=== PATIENT | female | born 1955 | race African-American/Black ===

== ENCOUNTER 2023-08-28 14:12 | Inpatient (IN) | payer OTHER ==
[2023-08-28 14:50] VITALS: BMI 24.0
[2023-08-28 15:28] LABS: BASO % 0.5 % (0-2.0); EOS % 0.2 % (0-4.5); HEMATOCRIT 28.8 % (32.4-45.2); HEMOGLOBIN 9.4 GM/dL (10.7-15.3); LYMPH % 5.4 % (8-40); MCH 27.6 pg (25.7-33.7); MCHC 32.8 g/dl (32.0-36.0); MEAN CELL VOLUME 84.1 fl (80-96); MEAN PLT VOLUME 8.8 fl (7.5-11.1); MONO % 6.7 % (3.8-10.2); NEUT % 87.2 % (42.8-82.8); PLATELET COUNT 720 10^3/uL (134-434); RBC 3.42 M/mm3 (3.60-5.2); RDW 14.1 % (11.6-15.6); WHITE BLOOD COUNT 28.7 K/mm3 (4.0-10.0)
[2023-08-28 16:03] LABS: ALBUMIN 2.6 g/dl (3.4-5.0); CALCIUM 9.6 mg/dL (8.5-10.1)
[2023-08-28 16:06] LABS: CREATININE 1.3 mg/dL (0.55-1.3); LACTIC ACID 2.3 mmol/L (0.4-2.0)
[2023-08-28 16:08] LABS: BILIRUBIN,TOTAL 0.3 mg/dL (0.2-1)
[2023-08-28 16:43] LABS: ANISOCYTOSIS 0; MACROCYTOSIS 0
[2023-08-28] MEDS ORDERED: SODIUM CHLORIDE 0.9% 500 ML INFUS.BAG IV ONE (17:00)
[2023-08-28] MEDS ORDERED: HALOPERIDOL LACTATE 5 MG/ML IM ONE ×2 (17:39→18:05)
[2023-08-28] MEDS ORDERED: PIPERACILLIN/TAZOB 4.5 GM 4.5 GM in DEXTROSE 5%-WATER 100 ML IVPB ONE (18:57)
[2023-08-28] MEDS ORDERED: VANCOMYCIN 1,000 MG in DEXTROSE 5%-WATER - 250 ML IVPB ONE (18:57)
[2023-08-28] MEDS ORDERED: CEFEPIME HCL 1 GM VIAL (RESTRICTED TO ID) IVPB ONE (19:07)
[2023-08-28 20:14] LABS: EPI CELLS 6 /uL (0-25.1); HYALINE CASTS 2 /uL (0-3.1); PH,URINE 5.5 (5.0-8.0); URINE APPEARANCE CLEAR; URINE BACTERIA 191 /uL (0-1359); URINE BILIRUBIN NEGATIVE (NEGATIVE); URINE COLOR YELLOW; URINE GLUCOSE (UA) NEGATIVE (NEGATIVE); URINE KETONE 1+ (NEGATIVE); URINE LEUK ESTERASE 2+ (NEGATIVE); URINE NITRITE NEGATIVE (NEGATIVE); URINE PROTEIN 1+ (NEGATIVE); URINE WBC 277 /uL (0-25.8)
[2023-08-28 20:16] LABS: URINE RBC 24.2 /uL (0-23.9)
[2023-08-28] MEDS ORDERED: CEFEPIME 1 GM/100 ML BAG IVPB ONE (20:16)
[2023-08-28] MEDS ORDERED: VANCOMYCIN 1 GRAM (PRE-DOCKED) 1,000 MG/250 ML BAG IVPB ONE (20:16)
[2023-08-28] MEDS: SODIUM CHLORIDE 0.45% 1,000 ML IV SCH (22:50)
[2023-08-28] MEDS ORDERED: clonazePAM 0.5 MG TABLET PO SCH (23:30)
[2023-08-28] MEDS ORDERED: clonazePAM 0.5 MG TABLET PO PRN (23:45)
[2023-08-29] MEDS: CEFEPIME HCL 2 GM VIAL (RESTRICTED TO ID) IVPB SCH ×2 (03:50→16:30)
[2023-08-29] MEDS: INSULIN SLIDING SCALE (NOVOLOG) 1 VIAL SQ SCH ×4 (06:11→22:48)
[2023-08-29] MEDS: LEVOTHYROXINE NA 200 MCG TABLET PO SCH (06:11)
[2023-08-29] MEDS: HALOPERIDOL LACTATE 5 MG/ML IM PRN ×3 (06:14→15:09)
[2023-08-29] MEDS: ASPIRIN 81 MG CHEWABLE TABLETS PO SCH (11:16)
[2023-08-29] MEDS: ENOXAPARIN NA (PORCINE) 40 MG/0.4 ML DISP.SYRIN SQ SCH (11:16)
[2023-08-29] MEDS ORDERED: CEFEPIME HCL 2 GM VIAL (RESTRICTED TO ID) IVPB ONE (13:40)
[2023-08-29] MEDS: SODIUM CHLORIDE 0.45% 1,000 ML IV SCH (20:33)
[2023-08-29] MEDS ORDERED: CLOZAPINE 50 MG PO SCH (22:00)
[2023-08-29] MEDS ORDERED: MIRTAZAPINE 30 MG TABLET PO SCH (22:00)
[2023-08-29] MEDS ORDERED: CLOZAPINE 100 MG PO SCH (22:00)
[2023-08-29] MEDS ORDERED: cloZAPine 100 MG TABLET PO SCH (22:00)
[2023-08-29] MEDS ORDERED: PATIENT'S OWN MEDICATION (NON-FORMULARY) (Mirtazapine [Mirtazapine] 7.5 MG Tablet) PO SCH (22:00)
[2023-08-29] MEDS: CEFEPIME 2 GM in DEXTROSE 5%-WATER 100 ML IVPB SCH (22:42)
[2023-08-29] MEDS: CLOZAPINE PO SCH (22:43)
[2023-08-29] MEDS: ATORVASTATIN CA 20 MG TABLET (FP) PO SCH (22:45)
[2023-08-29] MEDS: FAMOTIDINE 20 MG TABLET PO SCH (22:46)
[2023-08-29] MEDS: SENNOSIDES 8.6MG TABLET (FP) PO SCH (22:46)
[2023-08-29] MEDS: MIRTAZAPINE PO SCH (22:52)
[2023-08-29] MEDS: DESMOPRESSIN ACETATE 0.1 MG TABLET PO SCH (23:00)
[2023-08-30] MEDS: HALOPERIDOL LACTATE 5 MG/ML IM PRN ×2 (02:02→13:18)
[2023-08-30] MEDS: INSULIN SLIDING SCALE (NOVOLOG) 1 VIAL SQ SCH ×4 (06:27→23:05)
[2023-08-30] MEDS: CEFEPIME 2 GM in DEXTROSE 5%-WATER 100 ML IVPB SCH ×2 (10:14→22:33)
[2023-08-30] MEDS: ENOXAPARIN NA (PORCINE) 40 MG/0.4 ML DISP.SYRIN SQ SCH (10:14)
[2023-08-30] MEDS ORDERED: amLODIPine BESYLATE 5 MG TABLET (FP) PO ONE (11:00)
[2023-08-30] MEDS ORDERED: guaiFENesin 200 MG/10 ML 10 ML UNIT-DOSE CUPS PO PRN (11:00)
[2023-08-30 11:22] LABS: BASO % 0.5 % (0-2.0); EOS % 1.3 % (0-4.5); HEMATOCRIT 28.8 % (32.4-45.2); HEMOGLOBIN 9.5 GM/dL (10.7-15.3); LYMPH % 9.2 % (8-40); MCH 27.3 pg (25.7-33.7); MCHC 32.9 g/dl (32.0-36.0); MEAN CELL VOLUME 82.9 fl (80-96); MEAN PLT VOLUME 8.9 fl (7.5-11.1); MONO % 5.4 % (3.8-10.2); NEUT % 83.6 % (42.8-82.8); PLATELET COUNT 586 10^3/uL (134-434); RBC 3.47 M/mm3 (3.60-5.2); RDW 14.4 % (11.6-15.6); WHITE BLOOD COUNT 19.3 K/mm3 (4.0-10.0)
[2023-08-30 11:58] LABS: POTASSIUM 3.6 mmol/L (3.5-5.1)
[2023-08-30 12:23] LABS: ALBUMIN 2.1 g/dl (3.4-5.0); CALCIUM 8.6 mg/dL (8.5-10.1)
[2023-08-30 12:27] LABS: CREATININE 0.6 mg/dL (0.55-1.3)
[2023-08-30 12:28] LABS: BILIRUBIN,TOTAL 0.4 mg/dL (0.2-1)
[2023-08-30 12:30] LABS: BLOOD UREA NITROGEN 10.5 mg/dL (7-18)
[2023-08-30] MEDS: ASPIRIN 81 MG CHEWABLE TABLETS PO SCH (13:03)
[2023-08-30] MEDS: AMINO ACIDS 4.25%/D5W 1,000 ML IV SCH (15:46)
[2023-08-30] MEDS: LEVOTHYROXINE NA 200 MCG TABLET PO SCH (21:55)
[2023-08-30] MEDS: ATORVASTATIN CA 20 MG TABLET (FP) PO SCH (23:05)
[2023-08-30] MEDS: DESMOPRESSIN ACETATE 0.1 MG TABLET PO SCH (23:05)
[2023-08-30] MEDS: MIRTAZAPINE PO SCH (23:05)
[2023-08-30] MEDS: FAMOTIDINE 20 MG TABLET PO SCH (23:05)
[2023-08-30] MEDS: CLOZAPINE PO SCH (23:05)
[2023-08-30] MEDS: SENNOSIDES 8.6MG TABLET (FP) PO SCH (23:05)
[2023-08-31] MEDS: AMINO ACIDS 4.25%/D5W 1,000 ML IV SCH ×2 (05:19→15:02)
[2023-08-31] MEDS: INSULIN SLIDING SCALE (NOVOLOG) 1 VIAL SQ SCH ×4 (06:13→22:03)
[2023-08-31] MEDS: LEVOTHYROXINE NA 200 MCG TABLET PO SCH (06:34)
[2023-08-31] MEDS: ASPIRIN 81 MG CHEWABLE TABLETS PO SCH (10:49)
[2023-08-31] MEDS: amLODIPine BESYLATE 5 MG TABLET (FP) PO SCH (10:49)
[2023-08-31] MEDS: CEFEPIME 2 GM in DEXTROSE 5%-WATER 100 ML IVPB SCH ×2 (10:52→21:31)
[2023-08-31] MEDS: HALOPERIDOL LACTATE 5 MG/ML IM PRN (12:02)
[2023-08-31] MEDS: ENOXAPARIN NA (PORCINE) 40 MG/0.4 ML DISP.SYRIN SQ SCH (12:24)
[2023-08-31] MEDS: ATORVASTATIN CA 20 MG TABLET (FP) PO SCH (22:00)
[2023-08-31] MEDS: CLOZAPINE PO SCH (22:00)
[2023-08-31] MEDS: DESMOPRESSIN ACETATE 0.1 MG TABLET PO SCH (22:00)
[2023-08-31] MEDS: MIRTAZAPINE PO SCH (22:00)
[2023-08-31] MEDS: SENNOSIDES 8.6MG TABLET (FP) PO SCH (22:00)
[2023-08-31] MEDS: FAMOTIDINE 20 MG TABLET PO SCH (22:00)
[2023-09-01] MEDS: AMINO ACIDS 4.25%/D5W 1,000 ML IV SCH ×3 (03:02→19:01)
[2023-09-01] MEDS: INSULIN SLIDING SCALE (NOVOLOG) 1 VIAL SQ SCH ×4 (06:22→22:23)
[2023-09-01] MEDS: LEVOTHYROXINE NA 200 MCG TABLET PO SCH (06:23)
[2023-09-01 08:10] LABS: BASO % 0.2 % (0-2.0); EOS % 6.6 % (0-4.5); HEMOGLOBIN 9.6 GM/dL (10.7-15.3); LYMPH % 8.6 % (8-40); MCH 26.9 pg (25.7-33.7); MCHC 32.1 g/dl (32.0-36.0); MEAN CELL VOLUME 83.9 fl (80-96); MEAN PLT VOLUME 9.3 fl (7.5-11.1); MONO % 6.3 % (3.8-10.2); NEUT % 78.3 % (42.8-82.8); PLATELET COUNT 518 10^3/uL (134-434); RBC 3.57 M/mm3 (3.60-5.2); RDW 13.8 % (11.6-15.6); WHITE BLOOD COUNT 13.2 K/mm3 (4.0-10.0)
[2023-09-01 08:25] LABS: POTASSIUM 3.4 mmol/L (3.5-5.1)
[2023-09-01 08:31] LABS: ALBUMIN 1.9 g/dl (3.4-5.0)
[2023-09-01 08:34] LABS: CREATININE 0.7 mg/dL (0.55-1.3)
[2023-09-01 08:35] LABS: BILIRUBIN,TOTAL 0.3 mg/dL (0.2-1); TOT PROT 7.5 g/dl (6.4-8.2)
[2023-09-01] MEDS: amLODIPine BESYLATE 5 MG TABLET (FP) PO SCH (10:47)
[2023-09-01] MEDS: ASPIRIN 81 MG CHEWABLE TABLETS PO SCH (10:47)
[2023-09-01] MEDS: CEFEPIME 2 GM in DEXTROSE 5%-WATER 100 ML IVPB SCH ×2 (10:48→22:25)
[2023-09-01] MEDS: ENOXAPARIN NA (PORCINE) 40 MG/0.4 ML DISP.SYRIN SQ SCH (10:48)
[2023-09-01] MEDS: ALBUTEROL SO4 2.5/IPRATROPIUM 0.5 INH SOL 3 ML VIAL.NEB. NEB PRN ×2 (16:05→20:38)
[2023-09-01] MEDS ORDERED: KCL 10 MEQ IVPB 10 MEQ/100 ML INFUS.BAG IVPB SCH (19:45)
[2023-09-01] MEDS: SENNOSIDES 8.6MG TABLET (FP) PO SCH (22:25)
[2023-09-01] MEDS: MIRTAZAPINE PO SCH (22:25)
[2023-09-01] MEDS: DESMOPRESSIN ACETATE 0.1 MG TABLET PO SCH (22:26)
[2023-09-01] MEDS: CLOZAPINE PO SCH (22:26)
[2023-09-01] MEDS: ATORVASTATIN CA 20 MG TABLET (FP) PO SCH (22:26)
[2023-09-01] MEDS: FAMOTIDINE 20 MG TABLET PO SCH (22:26)
[2023-09-02] MEDS: AMINO ACIDS 4.25%/D5W 1,000 ML IV SCH ×3 (03:10→13:59)
[2023-09-02] MEDS: INSULIN SLIDING SCALE (NOVOLOG) 1 VIAL SQ SCH ×4 (06:11→21:47)
[2023-09-02] MEDS: LEVOTHYROXINE NA 200 MCG TABLET PO SCH (06:25)
[2023-09-02] MEDS: CEFEPIME 2 GM in DEXTROSE 5%-WATER 100 ML IVPB SCH ×2 (10:26→21:49)
[2023-09-02] MEDS: amLODIPine BESYLATE 5 MG TABLET (FP) PO SCH (10:27)
[2023-09-02] MEDS: ASPIRIN 81 MG CHEWABLE TABLETS PO SCH (10:27)
[2023-09-02] MEDS: ENOXAPARIN NA (PORCINE) 40 MG/0.4 ML DISP.SYRIN SQ SCH (10:27)
[2023-09-02] MEDS: guaiFENesin/CODEINE 5 ML UNIT-DOSE CUPS PO PRN (13:54)
[2023-09-02] MEDS: FAMOTIDINE 20 MG TABLET PO SCH (22:01)
[2023-09-02] MEDS: ATORVASTATIN CA 20 MG TABLET (FP) PO SCH (22:01)
[2023-09-02] MEDS: MIRTAZAPINE PO SCH (22:01)
[2023-09-02] MEDS: DESMOPRESSIN ACETATE 0.1 MG TABLET PO SCH (22:01)
[2023-09-02] MEDS: CLOZAPINE PO SCH (22:01)
[2023-09-02] MEDS: SENNOSIDES 8.6MG TABLET (FP) PO SCH (22:02)
[2023-09-03] MEDS: AMINO ACIDS 4.25%/D5W 1,000 ML IV SCH ×3 (02:10→15:39)
[2023-09-03] MEDS: guaiFENesin/CODEINE 5 ML UNIT-DOSE CUPS PO PRN (03:01)
[2023-09-03] MEDS: INSULIN SLIDING SCALE (NOVOLOG) 1 VIAL SQ SCH ×4 (06:30→22:25)
[2023-09-03 10:03] LABS: BASO % 0.6 % (0-2.0); EOS % 10.8 % (0-4.5); HEMATOCRIT 30.4 % (32.4-45.2); HEMOGLOBIN 9.8 GM/dL (10.7-15.3); MCH 26.8 pg (25.7-33.7); MCHC 32.1 g/dl (32.0-36.0); MEAN CELL VOLUME 83.3 fl (80-96); MONO % 8.4 % (3.8-10.2); NEUT % 70.2 % (42.8-82.8); PLATELET COUNT 421 10^3/uL (134-434); RBC 3.64 M/mm3 (3.60-5.2); RDW 13.8 % (11.6-15.6); WHITE BLOOD COUNT 13.5 K/mm3 (4.0-10.0)
[2023-09-03 10:23] LABS: POTASSIUM 3.8 mmol/L (3.5-5.1)
[2023-09-03 10:40] LABS: ALBUMIN 2.2 g/dl (3.4-5.0); BLOOD UREA NITROGEN 28.4 mg/dL (7-18)
[2023-09-03 10:43] LABS: CREATININE 0.7 mg/dL (0.55-1.3)
[2023-09-03 10:44] LABS: BILIRUBIN,TOTAL 0.3 mg/dL (0.2-1); TOT PROT 7.8 g/dl (6.4-8.2)
[2023-09-03] MEDS: CEFEPIME 2 GM in DEXTROSE 5%-WATER 100 ML IVPB SCH ×2 (10:51→22:20)
[2023-09-03] MEDS: ENOXAPARIN NA (PORCINE) 40 MG/0.4 ML DISP.SYRIN SQ SCH (10:51)
[2023-09-03] MEDS: ASPIRIN 81 MG CHEWABLE TABLETS PO SCH (11:04)
[2023-09-03] MEDS: amLODIPine BESYLATE 5 MG TABLET (FP) PO SCH (11:04)
[2023-09-03] MEDS: LEVOTHYROXINE SODIUM 100 MCG 5 ML VIAL IVPUSH SCH (12:46)
[2023-09-03] MEDS: LEVOTHYROXINE NA 200 MCG TABLET PO SCH (12:58)
[2023-09-03] MEDS: ALBUTEROL SO4 2.5/IPRATROPIUM 0.5 INH SOL 3 ML VIAL.NEB. NEB PRN (20:23)
[2023-09-03] MEDS ORDERED: FAT EMULSION/OLIVE/SOY (CLINOLIPID) 250 ML EMULSION IV SCH (22:00)
[2023-09-03] MEDS: MIRTAZAPINE PO SCH (22:58)
[2023-09-03] MEDS: FAMOTIDINE 20 MG TABLET PO SCH (22:58)
[2023-09-03] MEDS: DESMOPRESSIN ACETATE 0.1 MG TABLET PO SCH (22:58)
[2023-09-03] MEDS: CLOZAPINE PO SCH (22:58)
[2023-09-03] MEDS: ATORVASTATIN CA 20 MG TABLET (FP) PO SCH (22:58)
[2023-09-03] MEDS: SENNOSIDES 8.6MG TABLET (FP) PO SCH (23:00)
[2023-09-03] MEDS: FAT EMULSION/OLIVE/SOY/PHOSPHO 250 ML IV SCH (23:20)
[2023-09-04] MEDS: AMINO ACIDS 4.25%/D5W 1,000 ML IV SCH ×2 (06:12→15:44)
[2023-09-04] MEDS: INSULIN SLIDING SCALE (NOVOLOG) 1 VIAL SQ SCH ×4 (06:13→22:27)
[2023-09-04] MEDS: LEVOTHYROXINE SODIUM 100 MCG 5 ML VIAL IVPUSH SCH (11:02)
[2023-09-04] MEDS: ASPIRIN 81 MG CHEWABLE TABLETS PO SCH (11:03)
[2023-09-04] MEDS: amLODIPine BESYLATE 5 MG TABLET (FP) PO SCH (11:03)
[2023-09-04] MEDS: ENOXAPARIN NA (PORCINE) 40 MG/0.4 ML DISP.SYRIN SQ SCH (11:03)
[2023-09-04] MEDS: CEFEPIME 2 GM in DEXTROSE 5%-WATER 100 ML IVPB SCH ×2 (11:05→22:25)
[2023-09-04] MEDS: ALBUTEROL SO4 2.5/IPRATROPIUM 0.5 INH SOL 3 ML VIAL.NEB. NEB PRN (21:01)
[2023-09-04] MEDS: CLOZAPINE PO SCH (22:26)
[2023-09-04] MEDS: ATORVASTATIN CA 20 MG TABLET (FP) PO SCH (22:26)
[2023-09-04] MEDS: DESMOPRESSIN ACETATE 0.1 MG TABLET PO SCH (22:26)
[2023-09-04] MEDS: FAMOTIDINE 20 MG TABLET PO SCH (22:27)
[2023-09-04] MEDS: MIRTAZAPINE PO SCH (22:27)
[2023-09-04] MEDS: SENNOSIDES 8.6MG TABLET (FP) PO SCH (22:27)
[2023-09-04] MEDS: FAT EMULSION/OLIVE/SOY/PHOSPHO 250 ML IV SCH (23:40)
[2023-09-05] MEDS: AMINO ACIDS 4.25%/D5W 1,000 ML IV SCH ×2 (01:33→14:21)
[2023-09-05] MEDS: INSULIN SLIDING SCALE (NOVOLOG) 1 VIAL SQ SCH ×4 (06:44→22:10)
[2023-09-05] MEDS: amLODIPine BESYLATE 5 MG TABLET (FP) PO SCH (10:38)
[2023-09-05] MEDS: CEFEPIME 2 GM in DEXTROSE 5%-WATER 100 ML IVPB SCH ×2 (10:38→22:10)
[2023-09-05] MEDS: ENOXAPARIN NA (PORCINE) 40 MG/0.4 ML DISP.SYRIN SQ SCH (10:38)
[2023-09-05] MEDS: ASPIRIN 81 MG CHEWABLE TABLETS PO SCH (10:38)
[2023-09-05] MEDS: LEVOTHYROXINE SODIUM 100 MCG 5 ML VIAL IVPUSH SCH (10:39)
[2023-09-05] MEDS: HALOPERIDOL LACTATE 5 MG/ML IM PRN (10:40)
[2023-09-05] MEDS: MIRTAZAPINE PO SCH (22:10)
[2023-09-05] MEDS: ATORVASTATIN CA 20 MG TABLET (FP) PO SCH (22:10)
[2023-09-05] MEDS: DESMOPRESSIN ACETATE 0.1 MG TABLET PO SCH (22:10)
[2023-09-05] MEDS: CLOZAPINE PO SCH (22:10)
[2023-09-05] MEDS: SENNOSIDES 8.6MG TABLET (FP) PO SCH (22:10)
[2023-09-05] MEDS: FAMOTIDINE 20 MG TABLET PO SCH (22:10)
[2023-09-05] MEDS: FAT EMULSION/OLIVE/SOY/PHOSPHO 250 ML IV SCH (23:08)
[2023-09-06] MEDS: AMINO ACIDS 4.25%/D5W 1,000 ML IV SCH ×3 (07:02→21:26)
[2023-09-06] MEDS: INSULIN SLIDING SCALE (NOVOLOG) 1 VIAL SQ SCH ×4 (07:04→22:11)
[2023-09-06] MEDS: HALOPERIDOL LACTATE 5 MG/ML IM PRN (10:05)
[2023-09-06] MEDS: LEVOTHYROXINE SODIUM 100 MCG 5 ML VIAL IVPUSH SCH ×2 (11:07→11:08)
[2023-09-06] MEDS: CEFEPIME 2 GM in DEXTROSE 5%-WATER 100 ML IVPB SCH ×2 (11:07→22:11)
[2023-09-06] MEDS: ASPIRIN 81 MG CHEWABLE TABLETS PO SCH (11:07)
[2023-09-06] MEDS: amLODIPine BESYLATE 5 MG TABLET (FP) PO SCH (11:08)
[2023-09-06] MEDS: ENOXAPARIN NA (PORCINE) 40 MG/0.4 ML DISP.SYRIN SQ SCH (11:08)
[2023-09-06] MEDS: ALBUTEROL SO4 2.5/IPRATROPIUM 0.5 INH SOL 3 ML VIAL.NEB. NEB PRN (14:57)
[2023-09-06] MEDS: DESMOPRESSIN ACETATE 0.1 MG TABLET PO SCH (22:19)
[2023-09-06] MEDS: MIRTAZAPINE PO SCH (22:19)
[2023-09-06] MEDS: ATORVASTATIN CA 20 MG TABLET (FP) PO SCH (22:19)
[2023-09-06] MEDS: SENNOSIDES 8.6MG TABLET (FP) PO SCH (22:19)
[2023-09-06] MEDS: CLOZAPINE PO SCH (22:19)
[2023-09-06] MEDS: FAMOTIDINE 20 MG TABLET PO SCH (22:19)
[2023-09-06] MEDS: FAT EMULSION/OLIVE/SOY/PHOSPHO 250 ML IV SCH (22:56)
[2023-09-07] MEDS: AMINO ACIDS 4.25%/D5W 1,000 ML IV SCH ×2 (01:51→14:00)
[2023-09-07] MEDS: HALOPERIDOL LACTATE 5 MG/ML IM PRN ×2 (04:20→16:32)
[2023-09-07] MEDS: INSULIN SLIDING SCALE (NOVOLOG) 1 VIAL SQ SCH ×3 (06:43→17:01)
[2023-09-07] MEDS: CEFEPIME 2 GM in DEXTROSE 5%-WATER 100 ML IVPB SCH (09:42)
[2023-09-07] MEDS: ENOXAPARIN NA (PORCINE) 40 MG/0.4 ML DISP.SYRIN SQ SCH (09:48)
[2023-09-07] MEDS: ASPIRIN 81 MG CHEWABLE TABLETS PO SCH (09:48)
[2023-09-07] MEDS: amLODIPine BESYLATE 5 MG TABLET (FP) PO SCH (09:49)
[2023-09-07] MEDS: LEVOTHYROXINE SODIUM 100 MCG 5 ML VIAL IVPUSH SCH (09:49)
[2023-09-08] MEDS: FAMOTIDINE 20 MG TABLET PO SCH ×3 (00:06→21:30)
[2023-09-08] MEDS: MIRTAZAPINE PO SCH ×2 (00:06→21:30)
[2023-09-08] MEDS: ATORVASTATIN CA 20 MG TABLET (FP) PO SCH ×3 (00:08→21:30)
[2023-09-08] MEDS: SENNOSIDES 8.6MG TABLET (FP) PO SCH ×2 (00:08→21:30)
[2023-09-08] MEDS: INSULIN SLIDING SCALE (NOVOLOG) 1 VIAL SQ SCH ×5 (00:15→21:55)
[2023-09-08] MEDS: FAT EMULSION/OLIVE/SOY/PHOSPHO 250 ML IV SCH ×2 (00:18→21:52)
[2023-09-08] MEDS: DESMOPRESSIN ACETATE 0.1 MG TABLET PO SCH ×2 (00:19→21:32)
[2023-09-08] MEDS: CLOZAPINE PO SCH ×2 (00:19→21:32)
[2023-09-08] MEDS: AMINO ACIDS 4.25%/D5W 1,000 ML IV SCH ×2 (01:32→17:21)
[2023-09-08] MEDS: LEVOTHYROXINE SODIUM 100 MCG 5 ML VIAL IVPUSH SCH (10:18)
[2023-09-08] MEDS: ENOXAPARIN NA (PORCINE) 40 MG/0.4 ML DISP.SYRIN SQ SCH (10:18)
[2023-09-08] MEDS: amLODIPine BESYLATE 5 MG TABLET (FP) PO SCH (10:23)
[2023-09-08] MEDS: ASPIRIN 81 MG CHEWABLE TABLETS PO SCH (10:23)
[2023-09-09] MEDS: AMINO ACIDS 4.25%/D5W 1,000 ML IV SCH ×3 (01:51→14:18)
[2023-09-09] MEDS: INSULIN SLIDING SCALE (NOVOLOG) 1 VIAL SQ SCH ×4 (06:09→21:51)
[2023-09-09] MEDS ORDERED: LORazepam 2 MG/ML SDV VIAL IVPUSH SCH (08:52)
[2023-09-09] MEDS: ASPIRIN 81 MG CHEWABLE TABLETS PO SCH (09:59)
[2023-09-09] MEDS: amLODIPine BESYLATE 5 MG TABLET (FP) PO SCH (09:59)
[2023-09-09] MEDS: LEVOTHYROXINE SODIUM 100 MCG 5 ML VIAL IVPUSH SCH (10:09)
[2023-09-09] MEDS: ENOXAPARIN NA (PORCINE) 40 MG/0.4 ML DISP.SYRIN SQ SCH (10:09)
[2023-09-09] MEDS: HALOPERIDOL LACTATE 5 MG/ML IM PRN (17:16)
[2023-09-09] MEDS: FAMOTIDINE 20 MG TABLET PO SCH (21:10)
[2023-09-09] MEDS: SENNOSIDES 8.6MG TABLET (FP) PO SCH (21:10)
[2023-09-09] MEDS: CLOZAPINE PO SCH (21:10)
[2023-09-09] MEDS: DESMOPRESSIN ACETATE 0.1 MG TABLET PO SCH (21:11)
[2023-09-09] MEDS: MIRTAZAPINE PO SCH (21:11)
[2023-09-09] MEDS: ATORVASTATIN CA 20 MG TABLET (FP) PO SCH (21:11)
[2023-09-09] MEDS: FAT EMULSION/OLIVE/SOY/PHOSPHO 250 ML IV SCH (21:51)
[2023-09-10] MEDS: AMINO ACIDS 4.25%/D5W 1,000 ML IV SCH ×2 (01:22→13:55)
[2023-09-10] MEDS: INSULIN SLIDING SCALE (NOVOLOG) 1 VIAL SQ SCH ×4 (06:28→23:07)
[2023-09-10] MEDS: LEVOTHYROXINE SODIUM 100 MCG 5 ML VIAL IVPUSH SCH (11:10)
[2023-09-10] MEDS: amLODIPine BESYLATE 5 MG TABLET (FP) PO SCH (11:18)
[2023-09-10] MEDS: ASPIRIN 81 MG CHEWABLE TABLETS PO SCH (11:18)
[2023-09-10] MEDS: ENOXAPARIN NA (PORCINE) 40 MG/0.4 ML DISP.SYRIN SQ SCH (13:42)
[2023-09-10] MEDS: DESMOPRESSIN ACETATE 0.1 MG TABLET PO SCH (23:06)
[2023-09-10] MEDS: ATORVASTATIN CA 20 MG TABLET (FP) PO SCH (23:06)
[2023-09-10] MEDS: CLOZAPINE PO SCH (23:06)
[2023-09-10] MEDS: FAMOTIDINE 20 MG TABLET PO SCH (23:07)
[2023-09-10] MEDS: SENNOSIDES 8.6MG TABLET (FP) PO SCH (23:07)
[2023-09-10] MEDS: MIRTAZAPINE PO SCH (23:07)
[2023-09-11] MEDS: FAT EMULSION/OLIVE/SOY/PHOSPHO 250 ML IV SCH ×2 (03:08→21:35)
[2023-09-11] MEDS: AMINO ACIDS 4.25%/D5W 1,000 ML IV SCH ×2 (03:14→17:13)
[2023-09-11] MEDS: INSULIN SLIDING SCALE (NOVOLOG) 1 VIAL SQ SCH ×4 (06:46→21:35)
[2023-09-11] MEDS: LEVOTHYROXINE SODIUM 100 MCG 5 ML VIAL IVPUSH SCH (12:31)
[2023-09-11] MEDS: ASPIRIN 81 MG CHEWABLE TABLETS PO SCH (12:32)
[2023-09-11] MEDS: amLODIPine BESYLATE 5 MG TABLET (FP) PO SCH (12:33)
[2023-09-11] MEDS: SENNOSIDES 8.6MG TABLET (FP) PO SCH (21:34)
[2023-09-11] MEDS: CLOZAPINE PO SCH (21:34)
[2023-09-11] MEDS: FAMOTIDINE 20 MG TABLET PO SCH (21:35)
[2023-09-11] MEDS: ATORVASTATIN CA 20 MG TABLET (FP) PO SCH (21:35)
[2023-09-11] MEDS: DESMOPRESSIN ACETATE 0.1 MG TABLET PO SCH (21:35)
[2023-09-11] MEDS: MIRTAZAPINE PO SCH (21:35)
[2023-09-12] MEDS: AMINO ACIDS 4.25%/D5W 1,000 ML IV SCH ×2 (01:46→15:08)
[2023-09-12] MEDS: INSULIN SLIDING SCALE (NOVOLOG) 1 VIAL SQ SCH ×4 (06:00→21:55)
[2023-09-12] MEDS: amLODIPine BESYLATE 5 MG TABLET (FP) PO SCH (09:31)
[2023-09-12] MEDS: ASPIRIN 81 MG CHEWABLE TABLETS PO SCH (09:31)
[2023-09-12] MEDS: LEVOTHYROXINE SODIUM 100 MCG 5 ML VIAL IVPUSH SCH (09:31)
[2023-09-12] MEDS: HALOPERIDOL LACTATE 5 MG/ML IM PRN (09:32)
[2023-09-12] MEDS: SENNOSIDES 8.6MG TABLET (FP) PO SCH (21:47)
[2023-09-12] MEDS: CLOZAPINE PO SCH (21:47)
[2023-09-12] MEDS: MIRTAZAPINE PO SCH (21:47)
[2023-09-12] MEDS: DESMOPRESSIN ACETATE 0.1 MG TABLET PO SCH (21:47)
[2023-09-12] MEDS: ATORVASTATIN CA 20 MG TABLET (FP) PO SCH (21:47)
[2023-09-12] MEDS: FAMOTIDINE 20 MG TABLET PO SCH (21:47)
[2023-09-12] MEDS: FAT EMULSION/OLIVE/SOY/PHOSPHO 250 ML IV SCH (21:50)
[2023-09-13] MEDS: AMINO ACIDS 4.25%/D5W 1,000 ML IV SCH ×2 (01:20→17:31)
[2023-09-13] MEDS: HALOPERIDOL LACTATE 5 MG/ML IM PRN (02:41)
[2023-09-13] MEDS: INSULIN SLIDING SCALE (NOVOLOG) 1 VIAL SQ SCH ×4 (06:00→22:05)
[2023-09-13] MEDS: ASPIRIN 81 MG CHEWABLE TABLETS PO SCH ×2 (10:44→16:34)
[2023-09-13] MEDS: amLODIPine BESYLATE 5 MG TABLET (FP) PO SCH ×2 (10:44→16:34)
[2023-09-13] MEDS: LEVOTHYROXINE SODIUM 100 MCG 5 ML VIAL IVPUSH SCH (10:44)
[2023-09-13] MEDS: FAT EMULSION/OLIVE/SOY/PHOSPHO 250 ML IV SCH (21:40)
[2023-09-13] MEDS: SENNOSIDES 8.6MG TABLET (FP) PO SCH ×2 (21:41→22:08)
[2023-09-13] MEDS: ATORVASTATIN CA 20 MG TABLET (FP) PO SCH ×2 (21:41→22:07)
[2023-09-13] MEDS: FAMOTIDINE 20 MG TABLET PO SCH ×2 (21:42→22:07)
[2023-09-13] MEDS: MIRTAZAPINE PO SCH ×2 (21:42→22:08)
[2023-09-13] MEDS: CLOZAPINE PO SCH ×2 (21:43→22:06)
[2023-09-13] MEDS: DESMOPRESSIN ACETATE 0.1 MG TABLET PO SCH ×2 (21:43→22:07)
[2023-09-14] MEDS: INSULIN SLIDING SCALE (NOVOLOG) 1 VIAL SQ SCH ×4 (06:36→22:14)
[2023-09-14] MEDS: AMINO ACIDS 4.25%/D5W 1,000 ML IV SCH (08:02)
[2023-09-14] MEDS: LEVOTHYROXINE SODIUM 100 MCG 5 ML VIAL IVPUSH SCH (10:33)
[2023-09-14] MEDS: amLODIPine BESYLATE 5 MG TABLET (FP) PO SCH (10:34)
[2023-09-14] MEDS: ASPIRIN 81 MG CHEWABLE TABLETS PO SCH (10:34)
[2023-09-14] MEDS: HALOPERIDOL LACTATE 5 MG/ML IM PRN (16:17)
[2023-09-14] MEDS: FAT EMULSION/OLIVE/SOY/PHOSPHO 250 ML IV SCH (21:45)
[2023-09-14] MEDS: CLOZAPINE PO SCH (23:03)
[2023-09-14] MEDS: ATORVASTATIN CA 20 MG TABLET (FP) PO SCH (23:06)
[2023-09-14] MEDS: DESMOPRESSIN ACETATE 0.1 MG TABLET PO SCH (23:07)
[2023-09-14] MEDS: FAMOTIDINE 20 MG TABLET PO SCH (23:07)
[2023-09-14] MEDS: MIRTAZAPINE PO SCH (23:07)
[2023-09-14] MEDS: SENNOSIDES 8.6MG TABLET (FP) PO SCH (23:10)
[2023-09-15] MEDS: AMINO ACIDS 4.25%/D5W 1,000 ML IV SCH ×3 (02:41→20:23)
[2023-09-15] MEDS: HALOPERIDOL LACTATE 5 MG/ML IM PRN ×2 (09:07→16:26)
[2023-09-15] MEDS: LEVOTHYROXINE SODIUM 100 MCG 5 ML VIAL IVPUSH SCH (11:10)
[2023-09-15] MEDS: INSULIN SLIDING SCALE (NOVOLOG) 1 VIAL SQ SCH ×3 (11:26→23:00)
[2023-09-15] MEDS: ASPIRIN 81 MG CHEWABLE TABLETS PO SCH (11:54)
[2023-09-15] MEDS: amLODIPine BESYLATE 5 MG TABLET (FP) PO SCH (11:55)
[2023-09-15] MEDS: MIRTAZAPINE PO SCH (23:00)
[2023-09-15] MEDS: ATORVASTATIN CA 20 MG TABLET (FP) PO SCH (23:00)
[2023-09-15] MEDS: FAMOTIDINE 20 MG TABLET PO SCH (23:00)
[2023-09-15] MEDS: SENNOSIDES 8.6MG TABLET (FP) PO SCH (23:00)
[2023-09-15] MEDS: DESMOPRESSIN ACETATE 0.1 MG TABLET PO SCH (23:00)
[2023-09-15] MEDS: CLOZAPINE PO SCH (23:00)
[2023-09-15] MEDS: FAT EMULSION/OLIVE/SOY/PHOSPHO 250 ML IV SCH (23:00)
[2023-09-16] MEDS: INSULIN SLIDING SCALE (NOVOLOG) 1 VIAL SQ SCH ×4 (00:14→23:23)
[2023-09-16] MEDS: AMINO ACIDS 4.25%/D5W 1,000 ML IV SCH ×2 (02:25→13:44)
[2023-09-16] MEDS: HALOPERIDOL LACTATE 5 MG/ML IM PRN ×2 (03:01→23:01)
[2023-09-16] MEDS: amLODIPine BESYLATE 5 MG TABLET (FP) PO SCH (10:52)
[2023-09-16] MEDS: LEVOTHYROXINE SODIUM 100 MCG 5 ML VIAL IVPUSH SCH (12:52)
[2023-09-16] MEDS: ASPIRIN 81 MG CHEWABLE TABLETS PO SCH (13:04)
[2023-09-16] MEDS: FAT EMULSION/OLIVE/SOY/PHOSPHO 250 ML IV SCH (22:01)
[2023-09-16] MEDS: SENNOSIDES 8.6MG TABLET (FP) PO SCH (22:02)
[2023-09-16] MEDS: FAMOTIDINE 20 MG TABLET PO SCH (22:06)
[2023-09-16] MEDS: MIRTAZAPINE PO SCH (22:06)
[2023-09-16] MEDS: ATORVASTATIN CA 20 MG TABLET (FP) PO SCH (22:06)
[2023-09-16] MEDS: DESMOPRESSIN ACETATE 0.1 MG TABLET PO SCH (22:09)
[2023-09-16] MEDS: CLOZAPINE PO SCH (22:09)
[2023-09-17] MEDS: AMINO ACIDS 4.25%/D5W 1,000 ML IV SCH (03:17)
[2023-09-17] MEDS: INSULIN SLIDING SCALE (NOVOLOG) 1 VIAL SQ SCH ×4 (06:43→23:17)
[2023-09-17] MEDS: LEVOTHYROXINE SODIUM 100 MCG 5 ML VIAL IVPUSH SCH (10:45)
[2023-09-17] MEDS: amLODIPine BESYLATE 5 MG TABLET (FP) PO SCH (10:57)
[2023-09-17] MEDS: ASPIRIN 81 MG CHEWABLE TABLETS PO SCH (10:57)
[2023-09-17] MEDS: FAT EMULSION/OLIVE/SOY/PHOSPHO 250 ML IV SCH (23:14)
[2023-09-17] MEDS: DESMOPRESSIN ACETATE 0.1 MG TABLET PO SCH (23:16)
[2023-09-18] MEDS: CLOZAPINE PO SCH ×2 (00:54→21:21)
[2023-09-18] MEDS: ATORVASTATIN CA 20 MG TABLET (FP) PO SCH ×2 (00:54→21:21)
[2023-09-18] MEDS: FAMOTIDINE 20 MG TABLET PO SCH ×2 (00:54→21:22)
[2023-09-18] MEDS: SENNOSIDES 8.6MG TABLET (FP) PO SCH ×2 (00:55→21:22)
[2023-09-18] MEDS: MIRTAZAPINE PO SCH ×2 (00:55→21:22)
[2023-09-18] MEDS: INSULIN SLIDING SCALE (NOVOLOG) 1 VIAL SQ SCH ×4 (06:44→21:35)
[2023-09-18] MEDS: ASPIRIN 81 MG CHEWABLE TABLETS PO SCH (09:37)
[2023-09-18] MEDS: amLODIPine BESYLATE 5 MG TABLET (FP) PO SCH (09:37)
[2023-09-18] MEDS: LEVOTHYROXINE SODIUM 100 MCG 5 ML VIAL IVPUSH SCH (09:54)
[2023-09-18 14:57] LABS: BASO % 0.8 % (0-2.0); EOS % 4.5 % (0-4.5); HEMATOCRIT 32.1 % (32.4-45.2); HEMOGLOBIN 10.4 GM/dL (10.7-15.3); LYMPH % 21.6 % (8-40); MCH 27.3 pg (25.7-33.7); MCHC 32.3 g/dl (32.0-36.0); MEAN CELL VOLUME 84.3 fl (80-96); MEAN PLT VOLUME 11.3 fl (7.5-11.1); MONO % 7.5 % (3.8-10.2); NEUT % 65.6 % (42.8-82.8); PLATELET COUNT 242 10^3/uL (134-434); RDW 16.6 % (11.6-15.6)
[2023-09-18 15:35] LABS: POTASSIUM 3.8 mmol/L (3.5-5.1)
[2023-09-18 15:37] LABS: CALCIUM 9.6 mg/dL (8.5-10.1)
[2023-09-18 15:39] LABS: ALBUMIN 2.7 g/dl (3.4-5.0); BLOOD UREA NITROGEN 36.2 mg/dL (7-18)
[2023-09-18 15:42] LABS: CREATININE 0.8 mg/dL (0.55-1.3)
[2023-09-18 15:43] LABS: TOT PROT 7.6 g/dl (6.4-8.2)
[2023-09-18 15:44] LABS: BILIRUBIN,TOTAL 0.2 mg/dL (0.2-1)
[2023-09-18] MEDS: FAT EMULSION/OLIVE/SOY/PHOSPHO 250 ML IV SCH (21:20)
[2023-09-18] MEDS: DESMOPRESSIN ACETATE 0.1 MG TABLET PO SCH (21:21)
[2023-09-18] MEDS: HALOPERIDOL LACTATE 5 MG/ML IM PRN (22:05)
[2023-09-19] MEDS: INSULIN SLIDING SCALE (NOVOLOG) 1 VIAL SQ SCH ×4 (06:28→22:44)
[2023-09-19] MEDS: LEVOTHYROXINE SODIUM 100 MCG 5 ML VIAL IVPUSH SCH (11:08)
[2023-09-19] MEDS: ASPIRIN 81 MG CHEWABLE TABLETS PO SCH (11:09)
[2023-09-19] MEDS: amLODIPine BESYLATE 5 MG TABLET (FP) PO SCH ×2 (11:09→16:44)
[2023-09-19] MEDS ORDERED: HALOPERIDOL DECANOATE 100 MG/ML IM ONE (15:45)
[2023-09-19] MEDS: HALOPERIDOL LACTATE 5 MG/ML IM PRN (16:44)
[2023-09-19] MEDS: FAT EMULSION/OLIVE/SOY/PHOSPHO 250 ML IV SCH (22:21)
[2023-09-19] MEDS: CLOZAPINE PO SCH ×2 (22:23→22:48)
[2023-09-19] MEDS: ATORVASTATIN CA 20 MG TABLET (FP) PO SCH ×2 (22:24→22:49)
[2023-09-19] MEDS: DESMOPRESSIN ACETATE 0.1 MG TABLET PO SCH ×2 (22:24→22:49)
[2023-09-19] MEDS: FAMOTIDINE 20 MG TABLET PO SCH ×2 (22:24→22:49)
[2023-09-19] MEDS: SENNOSIDES 8.6MG TABLET (FP) PO SCH ×2 (22:25→22:49)
[2023-09-19] MEDS: MIRTAZAPINE PO SCH ×2 (22:25→22:49)
[2023-09-19] MEDS: AMINO ACIDS 4.25%/D5W 1,000 ML IV SCH (22:30)
[2023-09-20] MEDS: HALOPERIDOL LACTATE 5 MG/ML IM PRN ×2 (01:27→22:47)
[2023-09-20] MEDS: INSULIN SLIDING SCALE (NOVOLOG) 1 VIAL SQ SCH ×4 (07:38→23:07)
[2023-09-20] MEDS: AMINO ACIDS 4.25%/D5W 1,000 ML IV SCH ×2 (07:39→11:13)
[2023-09-20] MEDS: amLODIPine BESYLATE 5 MG TABLET (FP) PO SCH (10:08)
[2023-09-20] MEDS: LEVOTHYROXINE SODIUM 100 MCG 5 ML VIAL IVPUSH SCH (10:08)
[2023-09-20] MEDS: ASPIRIN 81 MG CHEWABLE TABLETS PO SCH (10:08)
[2023-09-20] MEDS: FAMOTIDINE 20 MG TABLET PO SCH (22:27)
[2023-09-20] MEDS: MIRTAZAPINE PO SCH (22:27)
[2023-09-20] MEDS: DESMOPRESSIN ACETATE 0.1 MG TABLET PO SCH (22:27)
[2023-09-20] MEDS: ATORVASTATIN CA 20 MG TABLET (FP) PO SCH (22:27)
[2023-09-20] MEDS: SENNOSIDES 8.6MG TABLET (FP) PO SCH (22:27)
[2023-09-20] MEDS: CLOZAPINE PO SCH (22:27)
[2023-09-21] MEDS: AMINO ACIDS 4.25%/D5W 1,000 ML IV SCH ×2 (00:16→12:55)
[2023-09-21] MEDS: FAT EMULSION/OLIVE/SOY/PHOSPHO 250 ML IV SCH ×2 (00:17→21:42)
[2023-09-21] MEDS: HALOPERIDOL LACTATE 5 MG/ML IM PRN (06:03)
[2023-09-21] MEDS: INSULIN SLIDING SCALE (NOVOLOG) 1 VIAL SQ SCH ×4 (06:19→21:42)
[2023-09-21] MEDS: amLODIPine BESYLATE 5 MG TABLET (FP) PO SCH (12:06)
[2023-09-21] MEDS: ASPIRIN 81 MG CHEWABLE TABLETS PO SCH (12:06)
[2023-09-21] MEDS: LEVOTHYROXINE SODIUM 100 MCG 5 ML VIAL IVPUSH SCH (12:12)
[2023-09-21] MEDS: ATORVASTATIN CA 20 MG TABLET (FP) PO SCH (21:42)
[2023-09-21] MEDS: FAMOTIDINE 20 MG TABLET PO SCH (21:42)
[2023-09-21] MEDS: CLOZAPINE PO SCH (21:42)
[2023-09-21] MEDS: DESMOPRESSIN ACETATE 0.1 MG TABLET PO SCH (21:42)
[2023-09-21] MEDS: MIRTAZAPINE PO SCH (21:43)
[2023-09-21] MEDS: SENNOSIDES 8.6MG TABLET (FP) PO SCH (21:43)
[2023-09-22] MEDS: AMINO ACIDS 4.25%/D5W 1,000 ML IV SCH ×3 (02:51→18:34)
[2023-09-22] MEDS: INSULIN SLIDING SCALE (NOVOLOG) 1 VIAL SQ SCH ×4 (08:21→22:30)
[2023-09-22] MEDS: HALOPERIDOL LACTATE 5 MG/ML IM PRN ×2 (09:08→15:48)
[2023-09-22] MEDS: ASPIRIN 81 MG CHEWABLE TABLETS PO SCH (10:41)
[2023-09-22] MEDS: amLODIPine BESYLATE 5 MG TABLET (FP) PO SCH (10:41)
[2023-09-22] MEDS: LEVOTHYROXINE SODIUM 100 MCG 5 ML VIAL IVPUSH SCH (11:46)
[2023-09-22] MEDS ORDERED: LORazepam 2 MG/ML SDV VIAL IVPUSH SCH (18:00)
[2023-09-22] MEDS: FAT EMULSION/OLIVE/SOY/PHOSPHO 250 ML IV SCH (22:29)
[2023-09-22] MEDS: ATORVASTATIN CA 20 MG TABLET (FP) PO SCH (22:30)
[2023-09-22] MEDS: CLOZAPINE PO SCH (22:30)
[2023-09-22] MEDS: DESMOPRESSIN ACETATE 0.1 MG TABLET PO SCH (22:30)
[2023-09-22] MEDS: FAMOTIDINE 20 MG TABLET PO SCH (22:30)
[2023-09-22] MEDS: MIRTAZAPINE PO SCH (22:31)
[2023-09-22] MEDS: SENNOSIDES 8.6MG TABLET (FP) PO SCH (22:31)
[2023-09-23] MEDS: AMINO ACIDS 4.25%/D5W 1,000 ML IV SCH ×2 (04:57→17:18)
[2023-09-23] MEDS: INSULIN SLIDING SCALE (NOVOLOG) 1 VIAL SQ SCH ×4 (05:59→23:01)
[2023-09-23] MEDS: LEVOTHYROXINE SODIUM 100 MCG 5 ML VIAL IVPUSH SCH (09:31)
[2023-09-23] MEDS: ASPIRIN 81 MG CHEWABLE TABLETS PO SCH (09:44)
[2023-09-23] MEDS: amLODIPine BESYLATE 5 MG TABLET (FP) PO SCH (09:44)
[2023-09-23] MEDS: HALOPERIDOL LACTATE 5 MG/ML IM PRN (12:36)
[2023-09-23] MEDS: FAMOTIDINE 20 MG TABLET PO SCH ×2 (22:27→22:45)
[2023-09-23] MEDS: SENNOSIDES 8.6MG TABLET (FP) PO SCH ×2 (22:27→22:45)
[2023-09-23] MEDS: MIRTAZAPINE PO SCH ×2 (22:27→22:45)
[2023-09-23] MEDS: FAT EMULSION/OLIVE/SOY/PHOSPHO 250 ML IV SCH (22:29)
[2023-09-23] MEDS: ATORVASTATIN CA 20 MG TABLET (FP) PO SCH ×2 (22:29→22:44)
[2023-09-23] MEDS: DESMOPRESSIN ACETATE 0.1 MG TABLET PO SCH ×2 (22:31→22:44)
[2023-09-23] MEDS: CLOZAPINE PO SCH (22:43)
[2023-09-24] MEDS: HALOPERIDOL LACTATE 5 MG/ML IM PRN ×2 (00:54→23:00)
[2023-09-24] MEDS: AMINO ACIDS 4.25%/D5W 1,000 ML IV SCH (06:09)
[2023-09-24] MEDS: INSULIN SLIDING SCALE (NOVOLOG) 1 VIAL SQ SCH ×4 (06:31→23:37)
[2023-09-24 09:44] LABS: BASO % 0.4 % (0-2.0); HEMATOCRIT 31.7 % (32.4-45.2); HEMOGLOBIN 10.1 GM/dL (10.7-15.3); LYMPH % 18.4 % (8-40); MCH 27.4 pg (25.7-33.7); MCHC 31.8 g/dl (32.0-36.0); MEAN CELL VOLUME 86.2 fl (80-96); MONO % 7.4 % (3.8-10.2); NEUT % 60.8 % (42.8-82.8); PLATELET COUNT 149 10^3/uL (134-434); RBC 3.67 M/mm3 (3.60-5.2); RDW 16.6 % (11.6-15.6); WHITE BLOOD COUNT 6.4 K/mm3 (4.0-10.0)
[2023-09-24 10:06] LABS: POTASSIUM 3.2 mmol/L (3.5-5.1)
[2023-09-24 10:10] LABS: CALCIUM 8.8 mg/dL (8.5-10.1)
[2023-09-24 10:11] LABS: ALBUMIN 2.4 g/dl (3.4-5.0); BLOOD UREA NITROGEN 28.3 mg/dL (7-18)
[2023-09-24] MEDS: LEVOTHYROXINE SODIUM 100 MCG 5 ML VIAL IVPUSH SCH (10:12)
[2023-09-24 10:13] LABS: CREATININE 0.6 mg/dL (0.55-1.3)
[2023-09-24 10:15] LABS: BILIRUBIN,TOTAL 0.7 mg/dL (0.2-1); TOT PROT 6.6 g/dl (6.4-8.2)
[2023-09-24] MEDS: ASPIRIN 81 MG CHEWABLE TABLETS PO SCH (10:19)
[2023-09-24] MEDS: amLODIPine BESYLATE 5 MG TABLET (FP) PO SCH (10:20)
[2023-09-24] MEDS: KCL 10 MEQ IVPB 10 MEQ/100 ML INFUS.BAG IVPB SCH ×2 (12:39→14:18)
[2023-09-24] MEDS: FAT EMULSION/OLIVE/SOY/PHOSPHO 250 ML IV SCH (23:00)
[2023-09-24] MEDS: CLOZAPINE PO SCH (23:36)
[2023-09-24] MEDS: MIRTAZAPINE PO SCH (23:37)
[2023-09-24] MEDS: FAMOTIDINE 20 MG TABLET PO SCH (23:37)
[2023-09-24] MEDS: DESMOPRESSIN ACETATE 0.1 MG TABLET PO SCH (23:37)
[2023-09-24] MEDS: ATORVASTATIN CA 20 MG TABLET (FP) PO SCH (23:37)
[2023-09-24] MEDS: SENNOSIDES 8.6MG TABLET (FP) PO SCH (23:38)
[2023-09-25] MEDS: AMINO ACIDS 4.25%/D5W 1,000 ML IV SCH ×4 (01:47→22:11)
[2023-09-25] MEDS: INSULIN SLIDING SCALE (NOVOLOG) 1 VIAL SQ SCH ×4 (07:09→22:14)
[2023-09-25] MEDS: LEVOTHYROXINE SODIUM 100 MCG 5 ML VIAL IVPUSH SCH (09:41)
[2023-09-25] MEDS: amLODIPine BESYLATE 5 MG TABLET (FP) PO SCH (09:41)
[2023-09-25] MEDS: ASPIRIN 81 MG CHEWABLE TABLETS PO SCH (09:41)
[2023-09-25] MEDS: HALOPERIDOL LACTATE 5 MG/ML IM PRN (22:08)
[2023-09-25] MEDS: CLOZAPINE PO SCH (22:12)
[2023-09-25] MEDS: FAMOTIDINE 20 MG TABLET PO SCH (22:13)
[2023-09-25] MEDS: SENNOSIDES 8.6MG TABLET (FP) PO SCH (22:13)
[2023-09-25] MEDS: MIRTAZAPINE PO SCH (22:13)
[2023-09-25] MEDS: ATORVASTATIN CA 20 MG TABLET (FP) PO SCH (22:13)
[2023-09-25] MEDS: DESMOPRESSIN ACETATE 0.1 MG TABLET PO SCH (22:13)
[2023-09-25] MEDS: FAT EMULSION/OLIVE/SOY/PHOSPHO 250 ML IV SCH (23:48)
[2023-09-26] MEDS: INSULIN SLIDING SCALE (NOVOLOG) 1 VIAL SQ SCH ×4 (06:00→21:52)
[2023-09-26] MEDS: ASPIRIN 81 MG CHEWABLE TABLETS PO SCH (10:47)
[2023-09-26] MEDS: amLODIPine BESYLATE 5 MG TABLET (FP) PO SCH (10:47)
[2023-09-26] MEDS: LEVOTHYROXINE SODIUM 100 MCG 5 ML VIAL IVPUSH SCH (10:47)
[2023-09-26] MEDS: AMINO ACIDS 4.25%/D5W 1,000 ML IV SCH (11:45)
[2023-09-26] MEDS: FAT EMULSION/OLIVE/SOY/PHOSPHO 250 ML IV SCH (21:29)
[2023-09-26] MEDS: CLOZAPINE PO SCH ×2 (21:31→21:54)
[2023-09-26] MEDS: DESMOPRESSIN ACETATE 0.1 MG TABLET PO SCH ×2 (21:32→21:55)
[2023-09-26] MEDS: SENNOSIDES 8.6MG TABLET (FP) PO SCH ×2 (21:32→21:55)
[2023-09-26] MEDS: ATORVASTATIN CA 20 MG TABLET (FP) PO SCH ×2 (21:33→21:55)
[2023-09-26] MEDS: MIRTAZAPINE PO SCH ×2 (21:33→21:55)
[2023-09-26] MEDS: FAMOTIDINE 20 MG TABLET PO SCH ×2 (21:33→21:55)
[2023-09-27] MEDS: INSULIN SLIDING SCALE (NOVOLOG) 1 VIAL SQ SCH ×4 (06:04→22:09)
[2023-09-27] MEDS: ASPIRIN 81 MG CHEWABLE TABLETS PO SCH (10:08)
[2023-09-27] MEDS: amLODIPine BESYLATE 5 MG TABLET (FP) PO SCH (10:08)
[2023-09-27] MEDS: LEVOTHYROXINE SODIUM 100 MCG 5 ML VIAL IVPUSH SCH (10:08)
[2023-09-27] MEDS: AMINO ACIDS 4.25%/D5W 1,000 ML IV SCH ×2 (11:03→22:12)
[2023-09-27] MEDS: HALOPERIDOL LACTATE 5 MG/ML IM PRN (18:04)
[2023-09-27] MEDS ORDERED: FAT EMULSION/OLIVE/SOY (CLINOLIPID) 250 ML EMULSION IV SCH (22:00)
[2023-09-27] MEDS: FAT EMULSION/OLIVE/SOY/PHOSPHO 250 ML IV SCH ×2 (22:07→22:08)
[2023-09-27] MEDS: ATORVASTATIN CA 20 MG TABLET (FP) PO SCH (22:09)
[2023-09-27] MEDS: DESMOPRESSIN ACETATE 0.1 MG TABLET PO SCH (22:09)
[2023-09-27] MEDS: CLOZAPINE PO SCH (22:09)
[2023-09-27] MEDS: MIRTAZAPINE PO SCH (22:09)
[2023-09-27] MEDS: FAMOTIDINE 20 MG TABLET PO SCH (22:09)
[2023-09-27] MEDS: SENNOSIDES 8.6MG TABLET (FP) PO SCH (22:10)
[2023-09-28] MEDS: INSULIN SLIDING SCALE (NOVOLOG) 1 VIAL SQ SCH ×4 (06:55→21:51)
[2023-09-28] MEDS: ASPIRIN 81 MG CHEWABLE TABLETS PO SCH (11:42)
[2023-09-28] MEDS: amLODIPine BESYLATE 5 MG TABLET (FP) PO SCH (11:43)
[2023-09-28] MEDS: LEVOTHYROXINE SODIUM 100 MCG 5 ML VIAL IVPUSH SCH (11:45)
[2023-09-28] MEDS: AMINO ACIDS 4.25%/D5W 1,000 ML IV SCH ×2 (11:46→23:34)
[2023-09-28] MEDS: HALOPERIDOL LACTATE 5 MG/ML IM PRN (12:26)
[2023-09-28] MEDS: FAT EMULSION/OLIVE/SOY/PHOSPHO 250 ML IV SCH (21:56)
[2023-09-28] MEDS: FAMOTIDINE 20 MG TABLET PO SCH (22:01)
[2023-09-28] MEDS: DESMOPRESSIN ACETATE 0.1 MG TABLET PO SCH (22:01)
[2023-09-28] MEDS: MIRTAZAPINE PO SCH (22:01)
[2023-09-28] MEDS: CLOZAPINE PO SCH (22:01)
[2023-09-28] MEDS: ATORVASTATIN CA 20 MG TABLET (FP) PO SCH (22:01)
[2023-09-28] MEDS: SENNOSIDES 8.6MG TABLET (FP) PO SCH (22:01)
[2023-09-29] MEDS: INSULIN SLIDING SCALE (NOVOLOG) 1 VIAL SQ SCH ×2 (06:47→21:20)
[2023-09-29] MEDS: LEVOTHYROXINE SODIUM 100 MCG 5 ML VIAL IVPUSH SCH (09:55)
[2023-09-29] MEDS: AMINO ACIDS 4.25%/D5W 1,000 ML IV SCH ×2 (10:08→22:53)
[2023-09-29 10:31] LABS: ALBUMIN 2.8 g/dl (3.4-5.0); BILIRUBIN,TOTAL 0.2 mg/dL (0.2-1); BLOOD UREA NITROGEN 28.5 mg/dL (7-18); CALCIUM 9.3 mg/dL (8.5-10.1); TOT PROT 7.4 g/dl (6.4-8.2)
[2023-09-29 10:34] LABS: CREATININE 0.7 mg/dL (0.55-1.3)
[2023-09-29 10:39] LABS: BASO % 0.5 % (0-2.0); EOS % 3.7 % (0-4.5); HEMATOCRIT 34.7 % (32.4-45.2); HEMOGLOBIN 11.1 GM/dL (10.7-15.3); LYMPH % 21.2 % (8-40); MCH 27.7 pg (25.7-33.7); MCHC 31.9 g/dl (32.0-36.0); MEAN CELL VOLUME 86.6 fl (80-96); MEAN PLT VOLUME 12.9 fl (7.5-11.1); MONO % 9.4 % (3.8-10.2); NEUT % 65.2 % (42.8-82.8); PLATELET COUNT 142 10^3/uL (134-434); RDW 16.6 % (11.6-15.6); WHITE BLOOD COUNT 6.7 K/mm3 (4.0-10.0)
[2023-09-29] MEDS: amLODIPine BESYLATE 5 MG TABLET (FP) PO SCH (10:42)
[2023-09-29] MEDS: ASPIRIN 81 MG CHEWABLE TABLETS PO SCH (10:42)
[2023-09-29] MEDS: FAT EMULSION/OLIVE/SOY/PHOSPHO 250 ML IV SCH (21:19)
[2023-09-29] MEDS: DESMOPRESSIN ACETATE 0.1 MG TABLET PO SCH (21:20)
[2023-09-29] MEDS: CLOZAPINE PO SCH (21:20)
[2023-09-29] MEDS: HALOPERIDOL LACTATE 5 MG/ML IM PRN (21:21)
[2023-09-29] MEDS: FAMOTIDINE 20 MG TABLET PO SCH (21:21)
[2023-09-29] MEDS: ATORVASTATIN CA 20 MG TABLET (FP) PO SCH (21:21)
[2023-09-29] MEDS: SENNOSIDES 8.6MG TABLET (FP) PO SCH (21:21)
[2023-09-29] MEDS: MIRTAZAPINE PO SCH (21:21)
[2023-09-30] MEDS: INSULIN SLIDING SCALE (NOVOLOG) 1 VIAL SQ SCH ×3 (06:39→23:03)
[2023-09-30] MEDS: amLODIPine BESYLATE 5 MG TABLET (FP) PO SCH (10:56)
[2023-09-30] MEDS: ASPIRIN 81 MG CHEWABLE TABLETS PO SCH (10:56)
[2023-09-30] MEDS: AMINO ACIDS 4.25%/D5W 1,000 ML IV SCH ×2 (10:56→22:54)
[2023-09-30] MEDS: LEVOTHYROXINE SODIUM 100 MCG 5 ML VIAL IVPUSH SCH (12:28)
[2023-09-30] MEDS: ATORVASTATIN CA 20 MG TABLET (FP) PO SCH (22:52)
[2023-09-30] MEDS: MIRTAZAPINE PO SCH (22:52)
[2023-09-30] MEDS: CLOZAPINE PO SCH (22:52)
[2023-09-30] MEDS: DESMOPRESSIN ACETATE 0.1 MG TABLET PO SCH (22:52)
[2023-09-30] MEDS: FAMOTIDINE 20 MG TABLET PO SCH (22:52)
[2023-09-30] MEDS: SENNOSIDES 8.6MG TABLET (FP) PO SCH (22:53)
[2023-09-30] MEDS: FAT EMULSION/OLIVE/SOY/PHOSPHO 250 ML IV SCH (23:04)
[2023-10-01] MEDS: INSULIN SLIDING SCALE (NOVOLOG) 1 VIAL SQ SCH ×5 (06:05→22:58)
[2023-10-01] MEDS: ASPIRIN 81 MG CHEWABLE TABLETS PO SCH (10:44)
[2023-10-01] MEDS: amLODIPine BESYLATE 5 MG TABLET (FP) PO SCH (10:44)
[2023-10-01] MEDS: LEVOTHYROXINE SODIUM 100 MCG 5 ML VIAL IVPUSH SCH (10:50)
[2023-10-01] MEDS: AMINO ACIDS 4.25%/D5W 1,000 ML IV SCH ×2 (10:51→22:59)
[2023-10-01] MEDS: MIRTAZAPINE PO SCH ×2 (18:25→22:58)
[2023-10-01] MEDS: CLOZAPINE PO SCH ×2 (18:29→23:00)
[2023-10-01] MEDS ORDERED: MELATONIN 5 MG TABLETS PO PRN (22:00)
[2023-10-01 22:39] LABS: ARTERIAL BLD GAS O2 SATURATION 97.9 % (95-98); ARTERIAL BLOOD GAS BASE EXCESS -1.9 mmol/L (-2-2); ARTERIAL BLOOD GAS PO2 101.7 mmHg (80-100); ARTERIAL BLOOD GAS pH 7.442 (7.350-7.450)
[2023-10-01] MEDS: FAT EMULSION/OLIVE/SOY/PHOSPHO 250 ML IV SCH (22:53)
[2023-10-01] MEDS: SENNOSIDES 8.6MG TABLET (FP) PO SCH (22:58)
[2023-10-01] MEDS: FAMOTIDINE 20 MG TABLET PO SCH (22:58)
[2023-10-01] MEDS: ATORVASTATIN CA 20 MG TABLET (FP) PO SCH (22:58)
[2023-10-01] MEDS: DESMOPRESSIN ACETATE 0.1 MG TABLET PO SCH (22:58)
[2023-10-02] MEDS: INSULIN SLIDING SCALE (NOVOLOG) 1 VIAL SQ SCH ×6 (06:21→23:09)
[2023-10-02] MEDS: ASPIRIN 81 MG CHEWABLE TABLETS PO SCH (11:01)
[2023-10-02] MEDS: amLODIPine BESYLATE 5 MG TABLET (FP) PO SCH (11:01)
[2023-10-02] MEDS: AMINO ACIDS 4.25%/D5W 1,000 ML IV SCH ×2 (12:15→22:35)
[2023-10-02] MEDS: LEVOTHYROXINE SODIUM 100 MCG 5 ML VIAL IVPUSH SCH (12:15)
[2023-10-02] MEDS ORDERED: HALOPERIDOL DECANOATE 100 MG/ML IM ONE (19:00)
[2023-10-02] MEDS: SENNOSIDES 8.6MG TABLET (FP) PO SCH (22:23)
[2023-10-02] MEDS: FAMOTIDINE 20 MG TABLET PO SCH (22:23)
[2023-10-02] MEDS: ATORVASTATIN CA 20 MG TABLET (FP) PO SCH (22:23)
[2023-10-02] MEDS: MIRTAZAPINE PO SCH (22:23)
[2023-10-02] MEDS: CLOZAPINE PO SCH (22:24)
[2023-10-02] MEDS: DESMOPRESSIN ACETATE 0.1 MG TABLET PO SCH (22:24)
[2023-10-02] MEDS: FAT EMULSION/OLIVE/SOY/PHOSPHO 250 ML IV SCH (22:35)
[2023-10-03] MEDS: INSULIN SLIDING SCALE (NOVOLOG) 1 VIAL SQ SCH ×4 (06:17→21:40)
[2023-10-03] MEDS: ASPIRIN 81 MG CHEWABLE TABLETS PO SCH (11:37)
[2023-10-03] MEDS: amLODIPine BESYLATE 5 MG TABLET (FP) PO SCH (11:39)
[2023-10-03] MEDS: LEVOTHYROXINE SODIUM 100 MCG 5 ML VIAL IVPUSH SCH (11:44)
[2023-10-03] MEDS: AMINO ACIDS 4.25%/D5W 1,000 ML IV SCH ×2 (11:44→22:16)
[2023-10-03] MEDS: CLOZAPINE PO SCH (21:38)
[2023-10-03] MEDS: DESMOPRESSIN ACETATE 0.1 MG TABLET PO SCH (21:38)
[2023-10-03] MEDS: FAT EMULSION/OLIVE/SOY/PHOSPHO 250 ML IV SCH (21:38)
[2023-10-03] MEDS: ATORVASTATIN CA 20 MG TABLET (FP) PO SCH (21:39)
[2023-10-03] MEDS: FAMOTIDINE 20 MG TABLET PO SCH (21:40)
[2023-10-03] MEDS: SENNOSIDES 8.6MG TABLET (FP) PO SCH (21:40)
[2023-10-03] MEDS: MIRTAZAPINE PO SCH (21:40)
[2023-10-04] MEDS: HALOPERIDOL LACTATE 5 MG/ML IM PRN (01:08)
[2023-10-04] MEDS: INSULIN SLIDING SCALE (NOVOLOG) 1 VIAL SQ SCH ×2 (06:21→11:48)
[2023-10-04] MEDS: ASPIRIN 81 MG CHEWABLE TABLETS PO SCH (11:15)
[2023-10-04] MEDS: amLODIPine BESYLATE 5 MG TABLET (FP) PO SCH (11:15)
[2023-10-04] MEDS: LEVOTHYROXINE SODIUM 100 MCG 5 ML VIAL IVPUSH SCH (11:17)
[2023-10-04 13:28] VITALS: RESP 18; TEMP 97.3
[2023-10-04 15:54] VITALS: BP 118/71; PULSE 119
== END 2023-10-04 16:34 | DRG 194 ==
LOC: JER 14:12 → JERBED 20:47 → J5S 08-29 05:26
PROVIDERS: ADMIT Internal Medicine; ATTEND Internal Medicine
DX: J18.9 Pneumonia, unspecified organism (principal); E44.0 Moderate protein-calorie malnutrition; E87.0 Hyperosmolality and hypernatremia; E87.20 Acidosis, unspecified; F03.918 Unspecified dementia, unspecified severity, with other behavioral disturbance; F25.9 Schizoaffective disorder, unspecified; D72.829 Elevated white blood cell count, unspecified; D50.9 Iron deficiency anemia, unspecified; E11.9 Type 2 diabetes mellitus without complications; E03.9 Hypothyroidism, unspecified; R41.0 Disorientation, unspecified; R45.1 Restlessness and agitation; Z68.24 Body mass index [BMI] 24.0-24.9, adult; K21.9 Gastro-esophageal reflux disease without esophagitis; Z88.0 Allergy status to penicillin
CPT/HCPCS: 0241U-QW; 36415; 36600; 70450-TC; 71045-TC-FY; 71250-TC; 80053; 80061; 81003; 82803; 82962; 83605; 84443; 85025; 87040; 87081; 87086; 87635; 87899; 93005; 93010; 94640; 97116-GP; 97162-GP; 99285-25; G0480

== ENCOUNTER 2023-10-16 04:41 | Emergency (ER) | payer OTHER ==
[2023-10-16 04:50] VITALS: BMI 18.8
[2023-10-16 06:28] LABS: BASO % 0.4 % (0-2.0); EOS % 3.6 % (0-4.5); HEMATOCRIT 33.9 % (32.4-45.2); HEMOGLOBIN 10.9 GM/dL (10.7-15.3); LYMPH % 19.8 % (8-40); MCH 27.9 pg (25.7-33.7); MCHC 32.1 g/dl (32.0-36.0); MEAN CELL VOLUME 87.1 fl (80-96); MONO % 4.8 % (3.8-10.2); NEUT % 71.4 % (42.8-82.8); PLATELET COUNT 375 10^3/uL (134-434); RBC 3.89 M/mm3 (3.60-5.2); RDW 16.3 % (11.6-15.6); WHITE BLOOD COUNT 8.4 K/mm3 (4.0-10.0)
[2023-10-16 06:42] LABS: INR 1.13 (0.83-1.09); PROTHROMBIN TIME (PATIENT) 13.1 SEC (9.7-13.0)
[2023-10-16 06:45] LABS: ACTIVATED PTT 63.2 SECONDS (25.2-36.5)
[2023-10-16 06:49] LABS: POTASSIUM 4.9 mmol/L (3.5-5.1)
[2023-10-16 06:50] LABS: EPI CELLS 8 /uL (0-25.1); HYALINE CASTS 2 /uL (0-3.1); URINE APPEARANCE CLEAR; URINE BACTERIA 57 /uL (0-1359); URINE BILIRUBIN NEGATIVE (NEGATIVE); URINE COLOR YELLOW; URINE GLUCOSE (UA) NEGATIVE (NEGATIVE); URINE KETONE TRACE (NEGATIVE); URINE LEUK ESTERASE 2+ (NEGATIVE); URINE NITRITE NEGATIVE (NEGATIVE); URINE PROTEIN NEGATIVE (NEGATIVE); URINE RBC 25 /uL (0-23.9); URINE UROBILINOGEN 0.2 mg/dL (0.2-1.0); URINE WBC 55 /uL (0-25.8)
[2023-10-16 06:52] LABS: ALBUMIN 3.1 g/dl (3.4-5.0); BLOOD UREA NITROGEN 14.9 mg/dL (7-18)
[2023-10-16 06:56] LABS: TOT PROT 7.6 g/dl (6.4-8.2)
[2023-10-16 06:57] LABS: BILIRUBIN,TOTAL 0.6 mg/dL (0.2-1)
[2023-10-16 10:26] VITALS: TEMP 98.2
[2023-10-16 13:05] VITALS: BP 155/113; PULSE 103; RESP 16
== END 2023-10-16 13:00 | disposition admitted as inpatient to this hospital (09) ==
LOC: JER 04:41
DX: R41.82 Altered mental status, unspecified (principal); W19.XXXA Unspecified fall, initial encounter; Y92.9 Unspecified place or not applicable
CPT/HCPCS: 36415; 70450-TC; 71045-TC-FY; 72125-TC; 80053; 80061; 81003; 82550; 82962; 83036; 84484; 85025; 85610; 85730; 86850; 86900; 86901; 93005; 93010; 99285-25